=== PATIENT | female | born 1945 | race Caucasian/White ===

== ENCOUNTER → 2023-11-22 13:03 | Outpatient (REF) | payer MEDICARE, OTHER, SELFPAY | LOC: HWEVLT 13:03 | PROVIDERS: ATTENDING PHYSICIAN Radiology Vascular & Interventional Radiology | DX: I83.893 Varicose veins of bilateral lower extremities with other complications (principal) | CPT/HCPCS: 93970 ==

== ENCOUNTER → 2024-02-20 13:47 | Outpatient (REF) | payer MEDICARE, OTHER, SELFPAY ==
[2024-02-20 14:59] LABS: % Basophils 0.4 % (0-2); % Eosinophils 0.7 % (0-6); % Immature Granulocytes 0.4 % (0-0.5); % Lymphocytes 14.7 % (20.5-51.1); % Monocytes 3.3 % (1.7-9.3); % Neutrophils 80.5 % (42.2-75.2); Absolute Eosinophils 0.1 10^3/uL (0-0.7); Absolute Monocytes 0.2 10^3/uL (0.1-0.6); Absolute Neutrophils 5.4 10^3/uL (1.4-6.5); Hematocrit 43.3 % (37.0-47.0); Hemoglobin 13.9 g/dL (12.0-16.0); Mean Corp Hgb Conc. 32.1 g/dL (33.0-37.0); Mean Corpuscular Hgb 26.5 pg (27.0-31.0); Mean Corpuscular Volume 82.6 fL (81.0-99.0); Mean Platelet Volume 10.9 fL (7.4-10.4); Nucleated Red Blood Cells % 0 %; Platelet Count 219 10^3/uL (130-400); Red Blood Cell Count 5.24 10^6/uL (4.20-5.40); Red Cell Dist. Width 15.2 % (11.5-14.5); White Blood Cell Count 6.7 10^3/uL (4.8-10.8)
[2024-02-20 15:11] LABS: Erythrocyte Sed Rate 20 mm/hour (0-20)
[2024-02-20 15:52] LABS: ALT (SGPT) 29 U/L (0-35); AST (SGOT) 30 U/L (14-36); Albumin 4.2 g/dl (3.5-5.0); Alkaline Phosphatase 61 U/L (38-126); Blood Urea Nitrogen 22 mg/dl (7-17); Calcium 9.4 mg/dl (8.4-10.2); Carbon Dioxide 24 mmol/L (22-30); Chloride 105 mmol/L (98-107); Glucose 147 mg/dl (70-99); Potassium 4.6 mmol/L (3.5-5.1); Sodium 138 mmol/L (135-145); Total Bilirubin 0.6 mg/dl (0.2-1.3); Total Protein 7.1 g/dl (6.3-8.2); eGFR > 60.00
[2024-02-20 16:01] LABS: C-Reactive Protein < 5.00 mg/L (0.0-10.00)
[2024-02-20 16:17] LABS: Vitamin D, 25-OH*** 21.5 ng/mL (30-80)
[2024-02-22 14:33] LABS: Lyme Antibody Screen, EIA Negative (Negative)
== END ==
LOC: REG 13:47
PROVIDERS: ATTENDING PHYSICIAN Internal Medicine Rheumatology; FAMILY PHYSICIAN Internal Medicine
DX: M35.3 Polymyalgia rheumatica (principal); Z79.899 Other long term (current) drug therapy
CPT/HCPCS: 36415; 80053; 82306; 85025; 85652; 86140; 86618

== ENCOUNTER 2024-05-05 18:34 | Emergency (ER) | payer MEDICARE, OTHER, SELFPAY ==
[2024-05-05 18:36] VITALS: BP 190/106
[2024-05-05 18:42] VITALS: BP 190/106
[2024-05-05 21:12] VITALS: BP 166/98; BMI 30.5
[2024-05-05] MEDS: TYLENOL 1000 MG PO (21:17)
[2024-05-05] MEDS: ROXICODONE 5 MG PO (22:17)
--- NOTE | 2024-05-05 23:39 | ED.MUSCINJ ---
HPI-Injury
General
Chief Complaint: Fall
Source: patient
Exam Limitations: none
Time Seen by Provider: 05/05/24 20:01
Nursing documentation reviewed up to this point in time: agreed with
History of Present Illness-Injury
Is this injury a work related problem?: No
Is pt an associate of [facility]?: No
Initial Injury comments:
Patient states her dog pulled while on leash causing her to fall. Complains of pain to her right hip and low back. Injury occurred just MATERIAL DAMAGE ADJUSTER
Past History
Past History
ED Past Medical History: GERD, Hypercholesterolemia and Other (Migraines, diverticulitis. Mitral valve problem)
ED Past Surgical History: Gynecological (Ovary removal. Tubal ligation) and Other (Thyroidectomy)
Social History
Tobacco: Non-smoker
Alcohol: None
Personal:
Living: with family
Employment: Employed
Review of Systems
Review of Systems
Allergies reviewed?: Yes
All Other Systems: ROS reviewed and negative except as documented in HPI and ROS
Constitutional: Reports no symptoms
EENT: Reports no symptoms
Respiratory: Reports no symptoms
Cardiac: Reports no symptoms
ABD/GI: Reports no symptoms
Musculoskeletal: Reports joint pain (right hip pain) and back pain
Skin: Reports no symptoms
Neurological: Reports no symptoms
Psychiatric: Reports no symptoms
Musculoskeletal Injury Exam
Musculoskeletal Injury Exam
Right Hip:
Pain with Movement?: Mild
Tender to palpation?: Mild
Soft tissue swelling?: None
External deformity and angulation?: None
Joint effusion?: None
Contusion?: Moderate
Hematoma-local bleeding into tissue?: None
Crepitus with movement?: No
Joint instability?: No
Malalignment/deformity?: No
Range of motion: Full
Distal skin color and temperature: normal-warm & good color
Capillary Refill: normal
Normal distal neurovascular exam?: Yes
Bilateral Lower Back:
Pain with Movement?: Moderate
Tender to palpation?: Moderate
Soft tissue swelling?: None
External deformity and angulation?: None
Joint effusion?: None
Contusion?: Moderate
Hematoma-local bleeding into tissue?: None
Strain- Sprain- Tear (Connective tissue injury)?: Moderate
Crepitus with movement?: No
Joint instability?: No
Malalignment/deformity?: No
Range of motion: Limited
Distal skin color and temperature: normal-warm & good color
Capillary Refill: normal
Normal distal neurovascular exam?: Yes
Phy Exam
General Physical Exam
General Presentation: well appearing and no apparent distress
General age: appears stated age
General Skin: warm and dry
General Habitus: normal
General Mental: alert
Musculoskeletal Exam
Musculoskeletal Exam: neuro vasc intact
Skin Exam
Skin Exam: normal color, warm/dry and no rash
Psychiatric Exam
Psychiatric Exam: normal mood/affect
Injury Course
Orders/Labs/Results
Orders:
Orders
05/05/24 20:27
Hip, Right 2-3 Views [CR Hip - RT w/wo Pel 2-3 Vw*] Urgent
Comment:
Reason For Exam: fall
Include a pelvis x-ray?: Yes
Lumbar Spine Complete, 4 View [CR Lumbar Spine Comp Min 4 Vw*] Urgent
Comment:
Reason For Exam: fall
05/05/24 21:16
Acetaminophen [Tylenol] 1,000 mg .ROUTE .STK-MED ONE
Acetaminophen [Tylenol] 1,000 mg PO NOW STA
05/05/24 21:43
Oxycodone/Acetaminophen [Percocet 5/325] 1 tablet PO NOW STA
05/05/24 22:13
Oxycodone [Roxicodone] 5 mg PO NOW STA
*Radiology
Radiology exam reviewed: radiology read reviewed
*Pulse Oximetry
Patient hypoxic: no
*Critical Care Note
Total Time (30-74mins, 75-104mins- exclusive of procedures): Not Applicable
ED Attending Note
-
Portions of this chart may have been created with voice recognition software.� Occasional wrong word or��sound alike� substitutions may have occurred due to the inherent limitations of voice recognition software.
Discharge Plan
Departure
Patient Disposition: Home (Routine Discharge)
Date of Disposition: 05/05/24
Time of Disposition: 21:43
Patient with high blood pressure during this ER visit?: No
Condition: Good
Covid-19: Not Applicable
Discharge Problem:
Low back pain, Contusion of hip, right
Instructions: Contusion (DC), Preventing falls in adults, Low Back Pain ED
Prescriptions:
New
oxycodone 5 mg capsule
5 mg PO Q4H PRN (Reason: Pain) Qty: 10 0RF
No Action
cyanocobalamin (vitamin B-12) 250 MCG tablet
250 mcg PO DAILY
ascorbic acid (vitamin C) [Vitamin C] 500 MG tablet
500 mg PO DAILY
triamcinolone acetonide 16.5 GM aerosol,spray
2 spray NS HS
cholecalciferol (vitamin D3) [Vitamin D3] 1,000 UNIT tablet
1,000 unit PO DAILY
vitamin E mixed 400 UNIT capsule
400 unit PO DAILY
Calcium W/ Magnesium
2 tab PO DAILY
Gaviscon Extra Strength 1 EACH tablet,chewable
1 ea PO HSPRN PRN (Reason: reflux)
acetaminophen [Tylenol Extra Strength] 500 MG tablet
500 mg PO Q4HPRN PRN (Reason: Pain)
flecainide 50 MG tablet
50 mg PO Q12H
valsartan 40 MG tablet
40 mg PO HS
mupirocin 1 APPLIC ointment
1 applic topical BID Qty: 1 0RF
Patient Comments:
Patient started this treatment on 04/25/22 in the morning. Patient administered this medication @ 06:00 today 04/28/22.
turmeric root extract 500 mg Capsule
500 mg PO DAILY
multivitamin Tablet
1 tab PO DAILY
oxycodone 5 mg Tablet
5 mg PO Q4HPRN PRN (Reason: mild pain) Qty: 30 0RF
Xarelto 10 mg tablet
10 mg PO DAILY Qty: 30 0RF
Referrals:
Leyla Chu MD [Family Provider] -
Interventions
Interventions:
*Risk Screen - Suicide Last Done: 05/05/24 21:12
*General Assessment Last Done: 05/05/24 21:12
*Neglect/Abuse Screening Last Done: 05/05/24 21:12
ED- Fall Risk Assessment Last Done: 05/05/24 22:22
*ED COVID-19 Vaccine History Last Done: 05/05/24 21:12
*Nursing Disposition Last Done: 05/05/24 22:22
ED-Musculoskeletal Assessment Last Done: 05/05/24 21:20
ED- Neurological Assessment Last Done: 05/05/24 21:20
ED-Skin Assessment Last Done: 05/05/24 21:20
Discharge Date and Time
Discharge Date/Time: 05/05/24 22:22
Print Language: TONGAN
== END 2024-05-05 22:22 | disposition home or self-care (01) ==
LOC: EMR 18:34
PROVIDERS: EMERGENCY PHYSICIAN Emergency Medicine; FAMILY PHYSICIAN Internal Medicine
DX: S70.01XA Contusion of right hip, initial encounter (principal); M54.50 Low back pain, unspecified; W18.39XA Other fall on same level, initial encounter; Y93.K1 Activity, walking an animal; I49.9 Cardiac arrhythmia, unspecified; Z85.828 Personal history of other malignant neoplasm of skin; K21.9 Gastro-esophageal reflux disease without esophagitis; E78.00 Pure hypercholesterolemia, unspecified; K57.92 Diverticulitis of intestine, part unspecified, without perforation or abscess without bleeding; G43.909 Migraine, unspecified, not intractable, without status migrainosus
CPT/HCPCS: 99283; 72110; 73502

== ENCOUNTER → 2024-05-29 17:10 | Outpatient (REF) | payer MEDICARE, OTHER, SELFPAY ==
[2024-05-29 17:40] LABS: Hematocrit 47.3 % (37.0-47.0); Hemoglobin 15.4 g/dL (12.0-16.0); Mean Corp Hgb Conc. 32.6 g/dL (33.0-37.0); Mean Corpuscular Hgb 26.6 pg (27.0-31.0); Mean Corpuscular Volume 81.7 fL (81.0-99.0); Platelet Count 301 10^3/uL (130-400); Red Blood Cell Count 5.79 10^6/uL (4.20-5.40); Red Cell Dist. Width 15.6 % (11.5-14.5); White Blood Cell Count 7.3 10^3/uL (4.8-10.8)
[2024-05-29 17:58] LABS: ALT (SGPT) 29 U/L (0-35); AST (SGOT) 34 U/L (14-36); Albumin 4.9 g/dl (3.5-5.0); Alkaline Phosphatase 202 U/L (38-126); Blood Urea Nitrogen 17 mg/dl (7-17); Calcium 10.2 mg/dl (8.4-10.2); Carbon Dioxide 24 mmol/L (22-30); Chloride 102 mmol/L (98-107); Glucose 117 mg/dl (70-99); Potassium 4.8 mmol/L (3.5-5.1); Sodium 143 mmol/L (135-145); Total Bilirubin 0.9 mg/dl (0.2-1.3); Total Protein 8.1 g/dl (6.3-8.2); eGFR > 60.00
== END ==
LOC: REG 17:10
PROVIDERS: ATTENDING PHYSICIAN Internal Medicine Rheumatology; FAMILY PHYSICIAN Internal Medicine
DX: M35.3 Polymyalgia rheumatica (principal)
CPT/HCPCS: 36415; 80053; 85027; 86140

== ENCOUNTER → 2024-06-04 19:48 | Outpatient (REF) | payer MEDICARE, OTHER, SELFPAY | LOC: MRI 19:48 | PROVIDERS: ATTENDING PHYSICIAN Physician Assistant Medical; FAMILY PHYSICIAN Internal Medicine | DX: M25.551 Pain in right hip (principal); M54.50 Low back pain, unspecified | CPT/HCPCS: 73721 ==

== ENCOUNTER → 2024-06-14 15:23 | Outpatient (REF) | payer MEDICARE, OTHER, SELFPAY ==
[2024-06-14 16:23] LABS: % Basophils 0.1 % (0-2); % Immature Granulocytes 0.7 % (0-0.5); % Lymphocytes 7.7 % (20.5-51.1); % Monocytes 3.9 % (1.7-9.3); % Neutrophils 87.6 % (42.2-75.2); Absolute Immature Granulocytes 0.1 10^3/uL (0-0.05); Absolute Lymphocytes 0.7 10^3/uL (1.2-3.4); Absolute Monocytes 0.4 10^3/uL (0.1-0.6); Absolute Neutrophils 7.8 10^3/uL (1.4-6.5); Hematocrit 43.4 % (37.0-47.0); Mean Corp Hgb Conc. 32.3 g/dL (33.0-37.0); Mean Corpuscular Hgb 25.9 pg (27.0-31.0); Mean Corpuscular Volume 80.4 fL (81.0-99.0); Mean Platelet Volume 10.3 fL (7.4-10.4); Nucleated Red Blood Cells % 0 %; Platelet Count 292 10^3/uL (130-400); White Blood Cell Count 8.9 10^3/uL (4.8-10.8)
[2024-06-14 16:35] LABS: ALT (SGPT) 23 U/L (0-35); AST (SGOT) 25 U/L (14-36); Albumin 4.4 g/dl (3.5-5.0); Alkaline Phosphatase 135 U/L (38-126); Blood Urea Nitrogen 17 mg/dl (7-17); Calcium 9.8 mg/dl (8.4-10.2); Carbon Dioxide 22 mmol/L (22-30); Chloride 102 mmol/L (98-107); Glucose 168 mg/dl (70-99); Sodium 141 mmol/L (135-145); Total Bilirubin 0.6 mg/dl (0.2-1.3); Total Protein 7.3 g/dl (6.3-8.2); eGFR > 60.00
[2024-06-14 16:50] LABS: Erythrocyte Sed Rate 39 mm/hour (0-20)
[2024-06-14 16:54] LABS: Free T4 1.31 ng/dl (0.78-2.19)
[2024-06-14 17:08] LABS: TSH 0.31 uIU/ml (0.47-4.68)
== END ==
LOC: REG 15:23
PROVIDERS: ATTENDING PHYSICIAN Internal Medicine Rheumatology; FAMILY PHYSICIAN Internal Medicine
DX: E04.1 Nontoxic single thyroid nodule (principal); M17.0 Bilateral primary osteoarthritis of knee; M35.3 Polymyalgia rheumatica; M79.7 Fibromyalgia; R53.83 Other fatigue; R94.6 Abnormal results of thyroid function studies
CPT/HCPCS: 36415; 80053; 84439; 84443; 85025; 85652; 86140

== ENCOUNTER → 2024-08-28 17:35 | Outpatient (REF) | payer MEDICARE, OTHER, SELFPAY | LOC: RAD 17:35 | PROVIDERS: ATTENDING PHYSICIAN Internal Medicine | DX: R07.81 Pleurodynia (principal) | CPT/HCPCS: 71100 ==

== ENCOUNTER 2024-09-20 22:15 | Emergency (ER) | payer MEDICARE, OTHER, SELFPAY ==
[2024-09-20 22:16] VITALS: BMI 28.0
[2024-09-20 22:24] VITALS: BP 169/108
[2024-09-20 22:56] LABS: % Basophils 0.3 % (0-2); % Eosinophils 0.2 % (0-6); % Immature Granulocytes 0.3 % (0-0.5); % Lymphocytes 24.8 % (20.5-51.1); % Monocytes 7.8 % (1.7-9.3); % Neutrophils 66.6 % (42.2-75.2); Absolute Lymphocytes 1.5 10^3/uL (1.2-3.4); Absolute Monocytes 0.5 10^3/uL (0.1-0.6); Absolute Neutrophils 3.9 10^3/uL (1.4-6.5); Hematocrit 45.6 % (37.0-47.0); Hemoglobin 14.6 g/dL (12.0-16.0); Mean Corpuscular Hgb 26.7 pg (27.0-31.0); Mean Corpuscular Volume 83.4 fL (81.0-99.0); Mean Platelet Volume 10.3 fL (7.4-10.4); Nucleated Red Blood Cells % 0 %; Platelet Count 256 10^3/uL (130-400); Red Blood Cell Count 5.47 10^6/uL (4.20-5.40); Red Cell Dist. Width 14.7 % (11.5-14.5); Urine Albumin Negative (Neg - Trace); Urine Bilirubin Negative (Negative); Urine Character Clear (Clear); Urine Color Straw; Urine Glucose Negative (Negative); Urine Ketone Negative (Negative); Urine Leukocyte Negative (Negative); Urine Nitrite Negative (Negative); Urine Occult Blood Negative (Negative); Urine Urobilinogen Negative (Neg - 1+); Urine pH 6.5 (5.0-9.0); White Blood Cell Count 5.9 10^3/uL (4.8-10.8)
[2024-09-20 23:21] LABS: ALT (SGPT) 30 U/L (0-35); AST (SGOT) 28 U/L (14-36); Albumin 4.6 g/dl (3.5-5.0); Alkaline Phosphatase 121 U/L (38-126); Blood Urea Nitrogen 23 mg/dl (7-17); Carbon Dioxide 30 mmol/L (22-30); Chloride 105 mmol/L (98-107); Glucose 106 mg/dl (70-99); Sodium 139 mmol/L (135-145); Total Bilirubin 0.5 mg/dl (0.2-1.3); Total Protein 7.5 g/dl (6.3-8.2); eGFR > 60.00
[2024-09-21] MEDS: ANTIVERT 25 MG PO (02:52)
[2024-09-21 02:56] VITALS: BP 176/98
[2024-09-21 03:00] VITALS: BP 169/77
--- NOTE | 2024-09-21 03:02 | ED.GENMED ---
History of Present Illness
General
Chief Complaint: Dizziness
Time Seen by Provider: 09/21/24 02:06
History of Present Illness
History of Present Illness:
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 Patient reports since this afternoon she has been feeling dizzy, particularly when she looks down or quickly in 1 direction. Reports that she had similar
symptoms several years ago, however this feels worse. Denies any inciting injury or trauma. Denies any visual changes. Denies any recent illness or fever. Denies chest pain or difficulty breathing. Denies focal weakness or numbness to her
extremities. Denies additional acute medical complaints
Past History
Past History
ED Past Medical History: GERD, Hypercholesterolemia and Other (Migraines, diverticulitis. Mitral valve problem)
ED Past Surgical History: Gynecological (Ovary removal. Tubal ligation) and Other (Thyroidectomy)
Social History
Tobacco: Non-smoker
Alcohol: None
Personal:
Living: with family
Employment: Employed
Phy Exam
Physical Exam
Physical Exam:
General: Well-appearing, no clinical signs of dehydration, nontoxic and in no acute distress
HEENT: protecting airway
Neck: appears supple
CV: Normal heart rate, regular rhythm
Resp: No accessory muscle use, no increased work of breathing, lungs clear to auscultation bilaterally
Abd: Soft and non-distended, no tenderness to palpation
Extremities: No deformities, no swelling, no erythema
Neuro: alert, no focal neurologic deficit
: deferred
Rectal: deferred
Psych: Normal affect
Skin: Intact
Course
Orders/Labs/Results
Orders:
Orders
09/20/24 22:28
Electrocardiogram (*1) Urgent
Reason for Study: Vertigo / Dizzy
09/20/24 22:29
EKG- Treatment ONCE
09/20/24 22:45
Complete Blood Count/With Diff Urgent
Urinalysis Reflex To Culture Urgent
Date Specimen was Collected: 09/20/24
Time Specimen was Collected: 22:34
09/20/24 22:46
Comprehensive Metabolic Panel Urgent
09/21/24 02:47
CT Head W/o Iv Contrast Urgent
Comment:
Reason For Exam: dizziness
0.9% Sodium Chloride 1000 ml [Nss] 1,000 ml IV BOLUS
Meclizine [Antivert] 25 mg PO NOW STA
Abnormal Lab Results
09/20/24 09/20/24
22:45 22:46
RBC 5.47 H 10^6/uL
(4.20-5.40)
MCH 26.7 L pg
(27.0-31.0)
MCHC 32.0 L g/dL
(33.0-37.0)
RDW 14.7 H %
(11.5-14.5)
BUN 23 H mg/dl
(7-17)
Glucose 106 H mg/dl
(70-99)
09/20/24 22:45
09/20/24 22:46
Vital Signs
Initial and Last Documented VS:
Initial Vital Signs
Temp Pulse Resp BP Pulse Ox
98 F 95 18 169/108 97
09/20/24 22:24 09/20/24 22:24 09/20/24 22:24 09/20/24 22:24 09/20/24 22:24
Last Documented Vital Signs
Temp Pulse Resp BP Pulse Ox
98 F 95 18 169/108 98
09/20/24 22:24 09/20/24 22:24 09/20/24 22:24 09/20/24 22:24 09/21/24 02:56
MDM/Problems Addressed
MDM/Problems Addressed:
79-year-old female history of of PVCs presenting for dizziness. Vital signs on arrival are significant for hypertension.
On exam, patient is resting comfortably, no acute distress or discomfort. No focal neurologic deficits on exam, however on extraocular movement testing, does have nystagmus when looking toward the right. Ultimately suspect BPPV. Patient notes
that she has not been eating or drinking very much today, possible concomitant dehydration. Will start patient IV fluids. Lower suspicion for cardiac pathology, EKG obtained, does have some skipped beats, however sinus without any evidence of
heart block or additional arrhythmia. Patient additionally had screening laboratory analysis prior to my assessment, unremarkable. Will treat patient with IV fluids, meclizine and screen with CT brain imaging and plan for reassessment.
17:40 -patient CT without acute intracranial abnormality. On reassessment patient is reporting symptom improvement. At this time continue to suspect BPPV. Patient on reassessment does have some mild fluid behind her right TM. Patient notes
generalized nasal congestion, history of sinus issues. Suspected source of symptoms. Advised a decongestant agent such as Sudafed. Otherwise feel stable for discharge with close interval follow-up with primary care doctor. Will also provide ENT
follow-up. Return precautions discussed and patient verbalized understanding
*EKG
Interpreted by ED Provider?: Yes
EKG Intrepretation Date: 09/21/24
EKG Intrepretation Time: 03:05
Interpretation: normal
Heart Rate: 84
Rate: normal
Rhythm: sinus and PVC's
[place]: normal axis
Interval: normal interval
QRS Pattern: right bundle branch block
Ischemia: no ischemia
*Critical Care Note
Total Time (30-74mins, 75-104mins- exclusive of procedures): Not Applicable
ED Attending Note
-
Portions of this chart may have been created with voice recognition software.� Occasional wrong word or��sound alike� substitutions may have occurred due to the inherent limitations of voice recognition software.
Discharge Plan
Departure
Prescriptions:
No Action
cyanocobalamin (vitamin B-12) 250 MCG tablet
250 mcg PO DAILY
ascorbic acid (vitamin C) [Vitamin C] 500 MG tablet
500 mg PO DAILY
triamcinolone acetonide 16.5 GM aerosol,spray
2 spray NS HS
cholecalciferol (vitamin D3) [Vitamin D3] 1,000 UNIT tablet
1,000 unit PO DAILY
vitamin E mixed 400 UNIT capsule
400 unit PO DAILY
Calcium W/ Magnesium
2 tab PO DAILY
Gaviscon Extra Strength 1 EACH tablet,chewable
1 ea PO HSPRN PRN (Reason: reflux)
acetaminophen [Tylenol Extra Strength] 500 MG tablet
500 mg PO Q4HPRN PRN (Reason: Pain)
flecainide 50 MG tablet
50 mg PO Q12H
valsartan 40 MG tablet
40 mg PO HS
mupirocin 1 APPLIC ointment
1 applic topical BID Qty: 1 0RF
Patient Comments:
Patient started this treatment on 04/25/22 in the morning. Patient administered this medication @ 06:00 today 04/28/22.
turmeric root extract 500 mg Capsule
500 mg PO DAILY
multivitamin Tablet
1 tab PO DAILY
oxycodone 5 mg Tablet
5 mg PO Q4HPRN PRN (Reason: mild pain) Qty: 30 0RF
Xarelto 10 mg tablet
10 mg PO DAILY Qty: 30 0RF
oxycodone 5 mg capsule
5 mg PO Q4H PRN (Reason: Pain) Qty: 10 0RF
Referrals:
Leyla Chu MD [Family Provider] -
Interventions
Interventions:
*Risk Screen - Suicide Last Done: 09/21/24 02:57
*General Assessment Last Done: 09/21/24 02:56
*Neglect/Abuse Screening Last Done: 09/21/24 02:57
*ED COVID-19 Vaccine History Last Done: 09/21/24 02:56
ED- Neurological Assessment Last Done: 09/21/24 02:58
ED Swallowing Screen Last Done: 09/21/24 02:58
Discharge Date and Time
Print Language: BAHAMIAN
[2024-09-21 04:53] VITALS: BP 146/82
[2024-09-21 05:00] VITALS: BP 141/87
== END 2024-09-21 06:12 | disposition home or self-care (01) ==
LOC: EMR 22:15
PROVIDERS: EMERGENCY PHYSICIAN Student in an Organized Health Care Education/Training Program; FAMILY PHYSICIAN Internal Medicine
DX: R09.81 Nasal congestion (principal); R42 Dizziness and giddiness; H55.00 Unspecified nystagmus; I45.10 Unspecified right bundle-branch block; I49.3 Ventricular premature depolarization; K21.9 Gastro-esophageal reflux disease without esophagitis; E78.00 Pure hypercholesterolemia, unspecified; K57.92 Diverticulitis of intestine, part unspecified, without perforation or abscess without bleeding; G43.909 Migraine, unspecified, not intractable, without status migrainosus; Z88.6 Allergy status to analgesic agent; Z88.1 Allergy status to other antibiotic agents; Z91.041 Radiographic dye allergy status; Z91.040 Latex allergy status; Z88.2 Allergy status to sulfonamides; Z88.8 Allergy status to other drugs, medicaments and biological substances; Z91.048 Other nonmedicinal substance allergy status
CPT/HCPCS: 99284; 70450; 80053; 81003; 85025; 93005

== ENCOUNTER → 2025-01-30 16:09 | Outpatient (REF) | payer MEDICARE, OTHER, SELFPAY ==
[2025-01-30 17:35] LABS: Erythrocyte Sed Rate 9 mm/hour (0-20)
== END ==
LOC: REG 16:09
PROVIDERS: ATTENDING PHYSICIAN Physician Assistant; FAMILY PHYSICIAN Internal Medicine; REFERRING PHYSICIAN Internal Medicine Medical Oncology
DX: A69.20 Lyme disease, unspecified (principal); M35.3 Polymyalgia rheumatica
CPT/HCPCS: 36415; 85652; 86140; 86618

== ENCOUNTER → 2025-03-19 18:41 | Outpatient (REF) | payer MEDICARE, OTHER, SELFPAY | LOC: MRI 3T 18:41 | PROVIDERS: ATTENDING PHYSICIAN Internal Medicine Medical Oncology; FAMILY PHYSICIAN Internal Medicine | DX: Z15.01 Genetic susceptibility to malignant neoplasm of breast (principal); Z15.09 Genetic susceptibility to other malignant neoplasm | CPT/HCPCS: 77049; A9585 ==

== ENCOUNTER 2025-03-31 06:23 | Emergency (ER) | payer MEDICARE, OTHER, SELFPAY ==
[2025-03-31 06:41] VITALS: BP 130/71
[2025-03-31 07:37] VITALS: BMI 28.7
[2025-03-31 07:47] LABS: Hematocrit 41.1 % (37.0-47.0); Hemoglobin 13.3 g/dL (12.0-16.0); Mean Corp Hgb Conc. 32.4 g/dL (33.0-37.0); Mean Corpuscular Volume 80.7 fL (81.0-99.0); Nucleated Red Blood Cells % 0 %; Platelet Count 178 10^3/uL (130-400); Red Cell Dist. Width 14.6 % (11.5-14.5)
[2025-03-31 08:11] LABS: ALT (SGPT) 55 U/L (0-35); AST (SGOT) 45 U/L (14-36); Albumin 4.0 g/dl (3.5-5.0); Alkaline Phosphatase 61 U/L (38-126); Blood Urea Nitrogen 23 mg/dl (7-17); Calcium 9.2 mg/dl (8.4-10.2); Carbon Dioxide 22 mmol/L (22-30); Chloride 107 mmol/L (98-107); Estimated Creatinine Clearance 84 ml/min; Glucose 112 mg/dl (70-99); Potassium 3.9 mmol/L (3.5-5.1); Sodium 137 mmol/L (135-145); Total Protein 6.7 g/dl (6.3-8.2); eGFR > 60.00
--- NOTE | 2025-03-31 08:14 | ED.GENMED ---
History of Present Illness
General
Chief Complaint: Skin Problem
Time Seen by Provider: 03/31/25 06:51
History of Present Illness
History of Present Illness:
79-year-old female presents the emergency department for evaluation of redness and pain to the right lower extremity beginning Monday. She states the symptoms were accompanied by tactile fevers and chills as well. She was started that day on
antibiotics by her primary care physician, cephalexin 500 mg 3 times daily, has been compliant with this but feels as though the redness is worsening. Also concern for streaking erythema to the thigh and pain to the groin today as well. Fevers
have since resolved. No chest pain or shortness of breath. Initial wound to the right lower extremity was first noted 2 weeks ago
Past History
Past History
ED Past Medical History: GERD, Hypercholesterolemia and Other (Migraines, diverticulitis. Mitral valve problem)
ED Past Surgical History: Gynecological (Ovary removal. Tubal ligation) and Other (Thyroidectomy)
Social History
Tobacco: Non-smoker
Alcohol: None
Personal:
Living: with family
Employment: Employed
Review of Systems
Review of Systems
Allergies reviewed?: Yes
All Other Systems: ROS reviewed and negative except as documented in HPI and ROS
Phy Exam
Physical Exam
Physical Exam:
GEN: Well appearing, NAD, WDWN
HEENT: Oral mucosa moist, no scleral icterus
Cardiac: Regular rate and rhythm, no murmurs
Lung: No respiratory distress, no tachypnea, lungs clear to auscultation bilaterally
MSK: No gross deformity or injuries
Skin: Good color, no pallor or jaundice. Significant circumferential erythema extending from the ankle proximally to the mid calf with patchy papular lesions, there is faint erythema in a linear streaking pattern to the right medial thigh with
palpable inguinal adenopathy
Neuro: AO x3, moves all extremities freely
Psych: Calm, cooperative
Course
Orders/Labs/Results
Orders:
Orders
03/31/25 07:20
Venous Doppler Lwr Ext Rt [US Periph Venous LOWER Ext RT] Urgent
Comment:
Reason For Exam: RLE edema/pain
03/31/25 07:35
Complete Blood Count/With Diff Urgent
Comprehensive Metabolic Panel Urgent
03/31/25 09:11
CeFAZolin 2 GRAM [Ancef] 2 grams in 10 ml IV NOW
Abnormal Lab Results
03/31/25
07:35
MCV 80.7 L fL
(81.0-99.0)
MCH 26.1 L pg
(27.0-31.0)
MCHC 32.4 L g/dL
(33.0-37.0)
RDW 14.6 H %
(11.5-14.5)
MPV 10.5 H fL
(7.4-10.4)
Absolute Neuts (auto) 7.7 H 10^3/uL
(1.4-6.5)
Absolute Lymphs (auto) 0.9 L 10^3/uL
(1.2-3.4)
Neutrophils % 83.6 H %
(42.2-75.2)
Lymphocytes % 9.3 L %
(20.5-51.1)
BUN 23 H mg/dl
(7-17)
Glucose 112 H mg/dl
(70-99)
AST 45 H U/L
(14-36)
ALT 55 H U/L
(0-35)
03/31/25 07:35
03/31/25 07:35
Vital Signs
Initial and Last Documented VS:
Initial Vital Signs
Temp Pulse Resp BP Pulse Ox
98.1 F 85 20 130/71 96
03/31/25 06:41 03/31/25 06:41 03/31/25 06:41 03/31/25 06:41 03/31/25 06:41
Last Documented Vital Signs
Temp Pulse Resp BP Pulse Ox
98.1 F 69 16 139/72 98
03/31/25 06:41 03/31/25 09:17 03/31/25 09:17 03/31/25 09:17 03/31/25 09:17
MDM/Problems Addressed
MDM/Problems Addressed:
I recommend the patient be admitted to the hospital given failure of outpatient treatment however she has to care for her at home and thus was not willing to stay in the hospital. Given that she was treated with IV cefazolin and will
increase her cephalexin to 2 g daily with addition of doxycycline for broader coverage of possible resistant organism. Strict ED return parameters discussed should she not improve or develop a fever within the next 24 to 48 hours
*Pulse Oximetry
SaO2: 96
Oxygen Mode of Delivery: Room air
Patient hypoxic: no
*Critical Care Note
Total Time (30-74mins, 75-104mins- exclusive of procedures): Not Applicable
ED Attending Note
-
Portions of this chart may have been created with voice recognition software.� Occasional wrong word or��sound alike� substitutions may have occurred due to the inherent limitations of voice recognition software.
Discharge Plan
Departure
Patient Disposition: Home (Routine Discharge)
Date of Disposition: 03/31/25
Time of Disposition: 09:36
Patient with high blood pressure during this ER visit?: No
Discharge Problem:
Cellulitis of right lower extremity
Prescriptions:
New
doxycycline hyclate 100 mg tablet
100 mg PO BID Qty: 14 0RF
No Action
cyanocobalamin (vitamin B-12) 250 MCG tablet
250 mcg PO DAILY
ascorbic acid (vitamin C) [Vitamin C] 500 MG tablet
500 mg PO DAILY
triamcinolone acetonide 16.5 GM aerosol,spray
2 spray NS HS
cholecalciferol (vitamin D3) [Vitamin D3] 1,000 UNIT tablet
1,000 unit PO DAILY
vitamin E mixed 400 UNIT capsule
400 unit PO DAILY
Calcium W/ Magnesium
2 tab PO DAILY
Gaviscon Extra Strength 1 EACH tablet,chewable
1 ea PO HSPRN PRN (Reason: reflux)
acetaminophen [Tylenol Extra Strength] 500 MG tablet
500 mg PO Q4HPRN PRN (Reason: Pain)
flecainide 50 MG tablet
50 mg PO Q12H
valsartan 40 MG tablet
40 mg PO HS
mupirocin 1 APPLIC ointment
1 applic topical BID Qty: 1 0RF
Patient Comments:
Patient started this treatment on 04/25/22 in the morning. Patient administered this medication @ 06:00 today 04/28/22.
turmeric root extract 500 mg Capsule
500 mg PO DAILY
multivitamin Tablet
1 tab PO DAILY
oxycodone 5 mg Tablet
5 mg PO Q4HPRN PRN (Reason: mild pain) Qty: 30 0RF
Xarelto 10 mg tablet
10 mg PO DAILY Qty: 30 0RF
oxycodone 5 mg capsule
5 mg PO Q4H PRN (Reason: Pain) Qty: 10 0RF
meclizine 25 mg tablet
25 mg PO BID PRN (Reason: dizziness) Qty: 15 0RF
Referrals:
Leyla Chu MD [Family Provider, Internal Medicine]
Activity Restrictions/Additional Instructions:
We discussed that hospital admission for IV antibiotics would be recommended, however you have opted for discharge. We are adding a second antibiotic and recommend you increase the cephalexin to 500mg every 6 hours (four times daily). Please take
your next dose of cephalexin around 4pm today. Return to the ER if your symptoms do not seem to improve or if you develop a fever in the next 24-48 hours
Interventions
Interventions:
*Risk Screen - Suicide Last Done: 03/31/25 06:41
*General Assessment Last Done: 03/31/25 06:41
*Neglect/Abuse Screening Last Done: 03/31/25 06:41
*ED- Fall Risk Assessment Last Done: 03/31/25 06:41
*ED COVID-19 Vaccine History Last Done: 03/31/25 06:41
*Nursing Disposition Last Done: 03/31/25 10:21
ED-Skin Assessment Last Done: 03/31/25 07:38
Discharge Date and Time
Discharge Date/Time: 03/31/25 10:27
Print Language: MALTESE
[2025-03-31 09:17] VITALS: BP 139/72
[2025-03-31] MEDS: ANCEF 10 IV (09:25)
== END 2025-03-31 10:27 | disposition home or self-care (01) ==
LOC: EMR 06:23
PROVIDERS: Physician Assistant; EMERGENCY PHYSICIAN Emergency Medicine; FAMILY PHYSICIAN Internal Medicine
DX: L03.115 Cellulitis of right lower limb (principal); M79.604 Pain in right leg; R50.9 Fever, unspecified; E78.00 Pure hypercholesterolemia, unspecified; K57.92 Diverticulitis of intestine, part unspecified, without perforation or abscess without bleeding; K21.9 Gastro-esophageal reflux disease without esophagitis; G43.909 Migraine, unspecified, not intractable, without status migrainosus; Z79.01 Long term (current) use of anticoagulants; Z88.6 Allergy status to analgesic agent; Z88.1 Allergy status to other antibiotic agents; Z91.041 Radiographic dye allergy status; Z91.040 Latex allergy status; Z88.2 Allergy status to sulfonamides; Z88.8 Allergy status to other drugs, medicaments and biological substances; Z91.048 Other nonmedicinal substance allergy status
CPT/HCPCS: 99284; 96374; 80053; 85025; 93971

== ENCOUNTER → 2025-06-05 13:27 | Outpatient (REF) | payer MEDICARE, OTHER, SELFPAY ==
[2025-06-05 14:54] LABS: Hematocrit 44.2 % (37.0-47.0); Hemoglobin 14.0 g/dL (12.0-16.0); Mean Corp Hgb Conc. 31.7 g/dL (33.0-37.0); Mean Corpuscular Volume 82.2 fL (81.0-99.0); Nucleated Red Blood Cells % 0 %; Platelet Count 281 10^3/uL (130-400); Red Cell Dist. Width 15.2 % (11.5-14.5)
[2025-06-05 15:49] LABS: ALT (SGPT) 30 U/L (0-35); AST (SGOT) 27 U/L (14-36); Albumin 4.4 g/dl (3.5-5.0); Alkaline Phosphatase 68 U/L (38-126); Blood Urea Nitrogen 22 mg/dl (7-17); Calcium 9.3 mg/dl (8.4-10.2); Carbon Dioxide 26 mmol/L (22-30); Chloride 106 mmol/L (98-107); Glucose 114 mg/dl (70-99); Potassium 4.5 mmol/L (3.5-5.1); Sodium 139 mmol/L (135-145); Total Protein 7.3 g/dl (6.3-8.2); eGFR > 60.00
[2025-06-05 18:02] LABS: C-Reactive Protein 5.70 mg/L (0.0-10.00)
== END ==
LOC: REG 13:27
PROVIDERS: ATTENDING PHYSICIAN Dermatology; FAMILY PHYSICIAN Internal Medicine; OTHER PHYSICIAN Internal Medicine Cardiovascular Disease; OTHER PHYSICIAN Physician Assistant; REFERRING PHYSICIAN Internal Medicine Rheumatology
DX: L03.115 Cellulitis of right lower limb (principal); A69.20 Lyme disease, unspecified; M35.3 Polymyalgia rheumatica
CPT/HCPCS: 36415; 80053; 85025; 85652; 86140; 86618

== ENCOUNTER → 2025-07-30 09:53 | Outpatient (REF) | payer MEDICARE, OTHER, SELFPAY | LOC: RAD 09:53 | PROVIDERS: ATTENDING PHYSICIAN Internal Medicine Rheumatology; FAMILY PHYSICIAN Internal Medicine | DX: M81.0 Age-related osteoporosis without current pathological fracture (principal) | CPT/HCPCS: 77080; 77081 ==